=== PATIENT | female | born 1960 | race Caucasian/White ===

== ENCOUNTER 2017-06-12 10:23 | Outpatient (CLI) | payer BC | END 2017-06-12 10:24 | disposition home or self-care (01) | LOC: BICMAMMO 10:23 | PROVIDERS: ATTEND Obstetrics & Gynecology | DX: Z12.31 Encounter for screening mammogram for malignant neoplasm of breast (principal) | CPT/HCPCS: 77063; 77067; G0202 ==

== ENCOUNTER 2017-12-28 07:54 | Outpatient (CLI) | payer BC ==
[2017-12-28] MEDS ORDERED: Iopamidol 370 76% 50 ML VIAL FS ONE (12:53)
[2017-12-28] MEDS ORDERED: Iopamidol 370 76% 100 ML VIAL ONE (12:53)
--- NOTE | 2017-12-28 16:38 | NM ---
RADIONUCLIDE PARATHYROID SCAN 12/28/17 HISTORY: Multinodular goiter, primary hyperparathyroidism. FINDINGS: Heterogeneously increased uptake is present throughout the enlarged, multinodular goiter that extends well into the mediastinum. There is incomplete washout of the Sestamibi on delayed images, acquired out to three hours. Uptake within the neck and upper mediastinum is never shown to reliably be outsid e of the enlarged thyroid glands. There is increased uptake within the salivary glands initially, anh on juice was given and delayed imaging obtained. IMPRESSION: Very enlarged, multinodular goiter. This is favored to account for the heterogeneous uptake, with nano e diffuse delay in washout. Appearance is less focal than on the prior exam from 2015. There is no re liable evidence of parathyroid adenoma on today's study. Please see report from CT of the neck performed on the same date. POS: [facility]
== END 2017-12-28 07:55 | disposition home or self-care (01) ==
LOC: NM 07:54
PROVIDERS: ATTEND Otolaryngology Plastic Surgery within the Head & Neck
DX: E21.0 Primary hyperparathyroidism (principal); E04.2 Nontoxic multinodular goiter
CPT/HCPCS: 70492; 78072; A9500

== ENCOUNTER 2018-02-28 10:01 | Outpatient (CLI) | payer BC ==
--- NOTE | 2018-02-28 12:01 | CT ---
RIGHT UPPER EXTREMITY CT WITHOUT IV CONTRAST: HISTORY: A 57-year-old female with a history of arthritis and CT blueprint protocol preoperative evaluation. FINDINGS: There is very markedly severe right glenohumeral joint arthrosis with extensive glenohumeral joint sp josue loss and subchondral sclerosis and subchondral erosive changes, with some hypertrophic osteophyto sis. There is noted to be marked dilatation of the bicipital recess, measuring approximately 3.2 x 4 .2 cm in AP and transverse dimensions and approximately 7.1 cm in craniocaudal dimension. In additio n, there is dilatation of the subcoracoid recess with several synovial osteochondroma. This recess m easures up to approximately 2.2 x 4.3 cm. In addition, there is a second fluid collection, anteriorl y and somewhat caudal to the subcoracoid recess. This measures 3.4 x 4.5 cm and could represent a pa rt of this dilated recess or associated dilated, fluid filled bursa. There is marked muscle volume l oss of the supraspinatus muscle. IMPRESSION: 1. Severe glenohumeral joint arthropathy. 2. Fluid collections in the subcoracoid recess and adjacent to the subscapularis muscle, as well as a markedly dilated bicipital recess, evidence for associated bursitis. POS: [facility]
== END 2018-02-28 10:02 | disposition home or self-care (01) ==
LOC: CT 10:01
PROVIDERS: ATTEND Orthopaedic Surgery
DX: M19.011 Primary osteoarthritis, right shoulder (principal); M75.51 Bursitis of right shoulder

== ENCOUNTER 2018-03-21 10:30 | Inpatient (IN) | payer BC ==
[2018-03-21 10:57] VITALS: BMI 28.8
[2018-03-22] MEDS ORDERED: Clindamycin/D5W 600 mg/50 ml Premix Bag ONE (06:04)
[2018-03-22] MEDS ORDERED: Midazolam HCl 2 mg/2 ml Vial ONE ×2 (06:10→06:16)
[2018-03-22] MEDS ORDERED: Fentanyl 100 MCG/2 ML VIAL ONE ×4 (06:10→11:48)
[2018-03-22] MEDS ORDERED: Ondansetron HCl/PF 4 MG/2 ML Vial IVP PRN ×3 (06:13→14:36)
[2018-03-22] MEDS ORDERED: Vancomycin HCl 1.5 GM in Sodium Chloride 0.9% 250 ML 300 ML IVPB SCH ×2 (06:15→18:00)
[2018-03-22] MEDS ORDERED: hydrALAZINE 20 MG/ML VIAL ONE (06:42)
[2018-03-22] MEDS ORDERED: HYDROcodone/Acetaminophen 5/325 mg Tablet PO PRN ×2 (06:52)
[2018-03-22] MEDS ORDERED: traMADol HCl 50 MG TAB PO PRN ×4 (06:52→14:36)
[2018-03-22] MEDS ORDERED: Ketorolac Tromethamine 30 MG/ML VIAL IVP PRN (06:52)
[2018-03-22] MEDS ORDERED: Promethazine HCl 25 MG/ML VIAL IM PRN (06:52)
[2018-03-22] MEDS ORDERED: Zolpidem Tartrate 5 MG TAB PO PRN ×2 (06:52→14:36)
[2018-03-22] MEDS ORDERED: Ropivacaine HCl/PF 1,100 MG in Sodium Chloride 0.9% 440 ML NERVE BLCK SCH (06:52)
[2018-03-22] MEDS ORDERED: Fentanyl 100 MCG/2 ML VIAL IV PRN (06:54)
[2018-03-22] MEDS ORDERED: Ropivacaine 0.2% 550 ML 550 ML NERVE BLCK SCH (07:03)
[2018-03-22] MEDS ORDERED: Tranexamic Acid 1,000 MG in Sodium Chloride 0.9% 100 ML IVPB SCH (10:15)
--- NOTE | 2018-03-22 11:30 | RAD ---
RIGHT SHOULDER TWO VIEWS: History: Post op shoulder replacement. FINDINGS: This shows placement of the humeral prosthesis and post op changes of the glenoid. Humeral prosthesis appears to be in good position. No signs of fracture. IMPRESSION: Post op changes of the right shoulder. POS: [facility]
[2018-03-22] MEDS ORDERED: Promethazine HCl 25 MG/ML VIAL ONE (12:30)
[2018-03-22] MEDS ORDERED: Ropivacaine 0.5% HCl/PF (150 MG/30 ML VIAL) ONE ×2 (12:46→12:47)
[2018-03-22] MEDS ORDERED: PROPOFOL 200 MG/20 ML VIAL ONE (12:56)
[2018-03-22] MEDS ORDERED: Metoclopramide HCl 10 MG/2 ML VIAL ONE (12:56)
[2018-03-22] MEDS ORDERED: PHENYLEPHRINE-NS 100 MCG/ML 10 ML SYRINGE ONE (12:56)
[2018-03-22] MEDS ORDERED: ePHEDrine/0.9% NaCl/PF SYRINGE 50 mg/10 ml ONE (12:56)
[2018-03-22] MEDS ORDERED: Ondansetron HCl/PF 4 MG/2 ML Vial ONE (12:56)
[2018-03-22] MEDS ORDERED: Lidocaine 1% PF 5 ML VIAL ONE (12:56)
--- NOTE | 2018-03-22 13:01 | OP ---
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 PROCEDURE PERFORMED: 1. Right total shoulder arthroplasty. 2. Biceps tenodesis. STAFF: Jose Fitzgerald M.D. MORTGAGE FIELD INSPECTOR: Ronald Kauffman PA-C ANESTHESIA: Briones. The patient received a general endotracheal intubation with an interscalene block. ESTIMATED BLOOD LOSS: 250 mL. TOURNIQUET TIME: None. IMPLANTS: Reform plus glenoid M35 CortiLoc augment with a flex 4B stem and head 48 x 18 mm high offset. ANTIBIOTICS: Ancef 2 grams, vancomycin 1.5 grams, Levaquin 500 mg. COMPLICATIONS: None. HISTORY OF PRESENT ILLNESS: Ms. Magana is a pleasant 57-year-old female who has had right shoulder pain for many years. The patient desired to have surgical intervention. I discussed with the patient for greater than 2 years. The patient had previous total hips, has a history of rheumatoid arthritis. I discussed with the patient the risks and benefits of the surgery to include pain , scar, bleeding, infection, damage to vital structures, decreased range of motion or strength, continued pain despite surgical intervention, fracture, need for further revision surgery, the implant not lasting through her entire life, needing revision, damage to vital structures, loss of life or limb. The patient understood these risks and benefits and elected to proceed. PROCEDURE IN DETAIL: Timeout was performed designating the patient's right upper extremity as the operative site based on sight, consents, markings. After receiving antibiotics, timeout had been performed. She received TXA. We made an incision down to the deltopectoral interval, came down, found the deltopectoral groove came down exposed the humerus, found a large cystic biceps fluid collection was clavipectoral fascia. We came down through the biceps, found the biceps used it to come into the biceps groove. We then followed that through into the interval to expose the head. We had lots of synovitis and even some loose bodies. As we came down, completed our release inferiorly on the neck, staying on bone, but with the cautery and soft tissue after we completely exposed the neck. We got externally rotated took some of the posterior osteophytes off the humeral head and inferior osteophytes of the humeral head. We then used our B guide to cut, we cut our humeral head in place. I started and placed my guide to start broaching to open up the canal and broached up to a size 3. I reamed to ensure that I had good position, I ensured the posterior osteophytes were off of this, we then exposed our glenoid , we used a glenoid retractor posteriorly. We stayed using the biceps doing release superiorly and posteriorly pulling on the biceps to release the soft tissue posteriorly, anteriorly. We used the patient's glenoid ligament starting on the anterior surface of the glenoid moving around inferiorly, releasing, pulling the joint anything that was soft tissue synovitis which was excised, used rongeur inferiorly and a Calderon to ensure free release inferiorly. After I did my 360 degree exposure, I placed my Bankart in place to position and visualize the head. We used the initial guide pin that went over the subscapularis fossa, placed our guidepin and placed it once and started reaming by hand and placed our medial reamer. When we did that, we did not feel any purchase, I felt like I was to posterior, we placed the pin again and then finally had to freehand place the pin so it was more in the anterior aspect of the glenoid. I felt like when I placed my anterior rim I got a better ream. I reamed the anterior cortex by hand. I then placed my near reamer, reamed and got about 45 degree angle. I felt like I had purchase all the way around. After completion of this, we had placed our kick stop. We then placed our guide on top, had set down flush with a 45 degree glenoid face. We then drilled our holes, although I felt like they were somewhat shallow. We then moved back and after we had performed this, we then placed our center hole. We trialed and I felt like it was not sitting flush on further exam of the anterior hole as well as posterior there was not enough to pass through. I then had to deepen the hole to help with passage of the peg glenoid. After I deepened the hole and all the rest of the holes to ensure that I could place it , I was able to pass the glenoid down. We had already started our cement. We placed cement in the 3 peripheral holes and mounted our glenoid into place, I felt I had good firm fixation. We then placed a Ray-Thang in the humeral head on top and moved back to the humerus. We left the cement set for about 19 minutes before we began any manipulation of the glenoid vault. We then went up to size 4 broach. When I trialed, the 46 was trialed and I felt like the patient had too much posterior subluxation. It did fit the head almost perfectly, but I felt like it would be better given how much osteophyte was taken off posteriorly and the erosion of the bone to lateralize and therefore I preferred the larger head with a little bit of mismatch on the baseplate on the 35 degree baseplate. I placed a 48, had good posterior subluxation a good overall range of motion. I liked the alignment near the insertion of the supraspinatus and coverage of the humeral head. It fit the humerus well at the 2 o'clock position. Therefore, we knocked it out and placed 5 sutures #5 Ethibond suture to repair my subscapularis, I also had placed #5 in the tendon as a running Krackow up and down to help to tie over the top. Then, when reduced, I then sewed the stitches from inferior to superiorly tying subscapularis and cutting the knots. I then passed #2 Ethibond through the biceps and tenodesed it into the groove and then passed another suture that I had placed more in the lateral aspect of the tuberosity around tying over the top to lay the tendon down after I had sewn those 2 knots and passed them through the tendon. We then washed. We closed the deltopectoral with a running 0 Vicryl. We closed subcu with 2-0. We placed andrew. The patient will be admitted. She will be followed in-house overnight. The patient received antibiotics. She will begin passive range of motion. She will be discharged home tomorrow if her pain is controlled. SILVIA
[2018-03-22] MEDS ORDERED: Lidocaine 1% (PF) 30 ML VIAL ONE (13:03)
[2018-03-22] MEDS ORDERED: diphenhydrAMINE 50 MG CAP PO PRN (14:36)
[2018-03-22] MEDS ORDERED: Ondansetron ODT 4 MG TAB PO PRN (14:36)
[2018-03-22] MEDS ORDERED: Methocarbamol 1 GM/10 ML VIAL SLOW IVP PRN (14:36)
[2018-03-22] MEDS ORDERED: Acetaminophen 325 MG TAB PO PRN (14:36)
[2018-03-22] MEDS ORDERED: Bisacodyl 10 MG SUPP PR PRN (14:36)
[2018-03-22] MEDS ORDERED: HYDROcodone/Acetaminophen 10/325 mg Tablet PO PRN ×2 (14:36)
[2018-03-22] MEDS ORDERED: Milk Of Magnesia 30 ML UDCUP PO PRN (14:36)
[2018-03-22] MEDS ORDERED: Methocarbamol 500 MG TAB PO PRN (14:36)
[2018-03-22] MEDS ORDERED: Acetaminophen 500 MG TAB PO PRN (15:19)
[2018-03-22] MEDS: metFORMIN XR 500 MG TAB PO SCH (17:45)
[2018-03-22] MEDS: Ketorolac Tromethamine 30 MG/ML VIAL IVP SCH ×2 (18:27→23:57)
[2018-03-22] MEDS ORDERED: Atorvastatin Calcium 40 MG TAB PO SCH (21:00)
[2018-03-22] MEDS: Famotidine 20 MG TAB PO SCH (21:26)
[2018-03-22] MEDS: CEFAZOLIN/Water 2 GM/20 ML SYRINGE SLOW IVP SCH (21:28)
[2018-03-23] MEDS: Ketorolac Tromethamine 30 MG/ML VIAL IVP SCH ×2 (06:11→12:32)
[2018-03-23] MEDS: CEFAZOLIN/Water 2 GM/20 ML SYRINGE SLOW IVP SCH (06:12)
[2018-03-23] MEDS: Famotidine 20 MG TAB PO SCH (08:37)
[2018-03-23] MEDS ORDERED: Hydrochlorothiazide 25 MG TAB PO SCH (09:00)
[2018-03-23] MEDS ORDERED: Magnesium Oxide 250 MG TAB PO SCH (09:00)
[2018-03-23] MEDS: metFORMIN XR 500 MG TAB PO SCH (09:21)
[2018-03-23 15:53] VITALS: TEMP 98
[2018-03-23 17:14] VITALS: BP 140/88
[2018-03-24] MEDS ORDERED: Aspirin 81 mg Enteric Coated Tablet PO SCH (09:00)
--- NOTE | 2018-03-26 09:35 | DIS ---
DATE OF ADMISSION: 03/22/2018 DATE OF DISCHARGE: 03/23/2018 PREOPERATIVE DIAGNOSIS: Right shoulder degenerative joint/osteoarthritis. DISCHARGE DIAGNOSIS: Right shoulder degenerative joint/osteoarthritis. PROCEDURE: The patient underwent a right total shoulder replacement. HOSPITAL COURSE: Hospital stay was unremarkable. The patient discharged the next day without compli cations during her stay. DISCHARGE CONDITION: Good/stable. DISPOSITION: Home. DISCHARGE FOLLOWUP: Followup would be in 10-14 days, sooner if there are problems or concerns. DISCHARGE MEDICATIONS: Given with usage instructions. This is Ronald Kauffman PA-C dictating for Jose Fitzgerald M.D.
== END 2018-03-23 17:27 | disposition home or self-care (01) | DRG 483 ==
LOC: SURG A 03-22 05:48
PROVIDERS: ADMIT Orthopaedic Surgery; ATTEND Orthopaedic Surgery
PROC: 0RRJ0JZ Replacement of Right Shoulder Joint with Synthetic Substitute, Open Approach (ICD-10-PCS; principal; 2018-03-22)
PROC: 0LS30ZZ Reposition Right Upper Arm Tendon, Open Approach (ICD-10-PCS; 2018-03-22)
PROC: 3E0T3BZ Introduction of Anesthetic Agent into Peripheral Nerves and Plexi, Percutaneous Approach (ICD-10-PCS; 2018-03-22)
DX: M05.711 Rheumatoid arthritis with rheumatoid factor of right shoulder without organ or systems involvement (principal); E11.9 Type 2 diabetes mellitus without complications; Z79.84 Long term (current) use of oral hypoglycemic drugs; I10 Essential (primary) hypertension; Z79.82 Long term (current) use of aspirin; Z88.2 Allergy status to sulfonamides
CPT/HCPCS: 80048; 81001; 85027; 93005; 93010; A4306; C1713; G8978-GP-CJ; G8979-GP-CI; G8987-GO-CI; G8988-GO-CI; G8989-GO-CI; J0360; J1885; J1956; J2001; J2250; J2405; J2550; J2704; J2765; J2795; J3010; J3370; J3490; J7050

== ENCOUNTER 2018-03-21 10:54 | Outpatient (CLI) | payer BC ==
[2018-03-21 13:17] LABS: Bilirubin Negative (Negative); Blood, Urine Negative (Negative); Clarity CLEAR (Clear); Glucose, Urine (Dipstick) Negative (Negative); Leukocyte Small (Negative); Nitrite Negative (Negative); Protein, Urine (Dipstick) 30 mg/dL (Neg-Trace); Specific Gravity, Urine 1.018 (1.002-1.036)
[2018-03-21 13:19] LABS: Hemoglobin 15.8 g/dL (12.0-16.0); Mean Corpuscular HGB CONC 33.7 g/dL (32.0-36.0); Mean Corpuscular Hemoglobin 31.3 pg (27.0-31.0); Mean Corpuscular Volume 93.1 fL (78.0-98.0); Mean Platelet Volume 6.9 fL (7.4-10.4); Platelet Count 174 thou/uL (130-400); RBC Distribution Width 12.8 % (11.5-14.5); Red Blood Cell (RBC) Count 5.03 mill/uL (4.20-5.40); White Blood Cell (WBC) Count 4.4 thou/uL (4.8-10.8)
[2018-03-21 13:32] LABS: Anion Gap 12 mmol/L (10-20); BUN (Urea Nitrogen) 12 mg/dL (9.8-20.1); Calc. Creatinine Clearance 0 mL/min (70-130); Calcium 10.5 mg/dL (7.8-10.44); Carbon Dioxide 32 mmol/L (22-29); Chloride 101 mmol/L (98-107); Estimated GFR-MDRD 85; Glucose 194 mg/dL (70-105); Potassium 3.6 mmol/L (3.5-5.1); Sodium 141 mmol/L (136-145)
[2018-03-21 13:43] LABS: Bacteria/HPF None Seen HPF (None Seen); Hyaline Casts/LPF 0-3 HYALINE CAST LPF (0-3 Hyaline); RBC/HPF 0-3 HPF (0-3); Squamous Epithelial 0-3 HPF (0-3)
--- NOTE | 2018-03-21 16:46 | EKG ---
Test Reason : Blood Pressure : / mmHG Vent. Rate : 063 BPM Atrial Rate : 063 BPM P-R Int : 150 ms QRS Dur : 096 ms QT Int : 472 ms P-R-T Axes : 050 022 079 degrees QTc Int : 483 ms Normal sinus rhythm Nonspecific T wave abnormality Prolonged QT Abnormal ECG When compared with ECG of 30-DEC-2014 09:44, Nonspecific T wave abnormality now evident in Lateral leads Confirmed by TIM AMAYA, . SJulia (4) on 03/21/2018 4:45:38 PM Referred By: YAZMIN Confirmed By:DR. Pricilla DUMONT MD
== END 2018-03-21 10:55 | disposition home or self-care (01) ==
LOC: LABBT 10:54
PROVIDERS: ATTEND Orthopaedic Surgery
DX: Z01.818 Encounter for other preprocedural examination (principal); M06.811 Other specified rheumatoid arthritis, right shoulder
CPT/HCPCS: 80048; 81001; 85027; 93005; 93010

== ENCOUNTER 2018-06-14 09:39 | Outpatient (CLI) | payer BC | END 2018-06-14 09:40 | disposition home or self-care (01) | LOC: BICMAMMO 09:39 | PROVIDERS: ATTEND Obstetrics & Gynecology | DX: Z12.31 Encounter for screening mammogram for malignant neoplasm of breast (principal); R92.1 Mammographic calcification found on diagnostic imaging of breast; Z80.3 Family history of malignant neoplasm of breast | CPT/HCPCS: 77063; 77067 ==